=== PATIENT | male | born 1975 | race African-American/Black ===

== ENCOUNTER 2017-02-13 22:31 | Emergency (ER) | payer OTHER, MEDICAID ==
[~2017-02-13] VITALS: Ht 185.4 cm; Wt 99.8 kg
[2017-02-13 22:35] VITALS: BP_SYST 126
[2017-02-13] MEDS ORDERED: BACITRACIN 1 GM OINT TP ONE (23:33)
[2017-02-13 23:40] VITALS: BP_SYST 128
== END 2017-02-13 23:40 | disposition home or self-care (01) ==
LOC: SED 22:31
DX: I83.12 Varicose veins of left lower extremity with inflammation (principal); J45.909 Unspecified asthma, uncomplicated; Z88.8 Allergy status to other drugs, medicaments and biological substances; Z86.718 Personal history of other venous thrombosis and embolism
CPT/HCPCS: 99283

== ENCOUNTER 2019-11-22 22:39 | Emergency (ER) | payer OTHER, MEDICAID ==
[~2019-11-22] VITALS: Ht 185.4 cm; Wt 117.0 kg
[2019-11-22 22:45] VITALS: BP_SYST 132
[2019-11-23 01:05] LABS: BASOPHILS % (AUTO) 0.7 % (0.0-2.0); EOSINOPHILS # (AUTO) 0.2 K/uL (0.0-0.4); EOSINOPHILS % (AUTO) 4.6 % (0.0-4.0); HEMATOCRIT 37.2 % (36-54); LYMPHOCYTES # (AUTO) 1.7 K/uL (1.0-5.5); LYMPHOCYTES % (AUTO) 33.1 % (20.5-51.5); MEAN CORPUSCULAR HEMOGLOBIN 27 pg (27-31); MEAN CORPUSCULAR HGB CONC 32 % (32-36); MEAN CORPUSCULAR VOLUME 84 fL (79.0-98.0); MONOCYTES # (AUTO) 0.4 K/uL (0.0-1.0); MONOCYTES % (AUTO) 8.2 % (1.7-9.3); NEUTROPHILS # (AUTO) 2.8 K/uL (1.8-7.7); NEUTROPHILS % (AUTO) 53.4 % (40.0-70.0); PLATELET COUNT (AUTO) 259 K/uL (130-430); RED BLOOD CELL COUNT(AUTO) 4.44 MIL/uL (4.2-6.2); RED CELL DISTRIBUTION WIDTH 14.6 % (9.0-15.0); WHITE BLOOD COUNT (AUTO) 5.2 K/uL (4.8-10.8)
[2019-11-23 01:14] LABS: CALCIUM 8.4 mg/dL (8.4-11.0); CREATININE 1.29 mg/dL (0.55-1.30); POTASSIUM 3.9 mmol/L (3.5-5.1)
[2019-11-23 01:19] LABS: ALBUMIN 3.6 g/dL (3.4-4.8); TOTAL BILIRUBIN 0.4 mg/dL (0.0-1.0)
[2019-11-23 01:52] LABS: BILIRUBIN,URINE NEGATIVE (NEGATIVE); BLOOD, URINE NEGATIVE (NEGATIVE); CLARITY/URINE CLEAR (CLEAR); COLOR,URINE YELLOW (YELLOW); GLUCOSE,URINE NEGATIVE (NEGATIVE); KETONES,URINE NEGATIVE (NEGATIVE); LEUKOCYTE ESTERASE ,URINE TRACE (NEGATIVE); NITRITE, URINE NEGATIVE (NEGATIVE); PROTEIN URINE NEGATIVE (NEGATIVE); UROBILINOGEN,URINE 0.2 (0.2-1.0)
[2019-11-23 02:11] VITALS: BP_SYST 128
[2019-11-25 01:06] LABS: CHLAMYDIA TRACHOMATIS NAA Negative (Negative); NEISSERIA GONORRHOEAE NAA Negative (Negative)
== END 2019-11-23 02:11 | disposition home or self-care (01) ==
LOC: SED 22:39
DX: R10.31 Right lower quadrant pain (principal); J45.909 Unspecified asthma, uncomplicated; F15.90 Other stimulant use, unspecified, uncomplicated; Z72.89 Other problems related to lifestyle; Z88.6 Allergy status to analgesic agent; Z86.718 Personal history of other venous thrombosis and embolism
CPT/HCPCS: 36415; 80053; 81003; 83690-TC; 85025; 87491; 87591; 99284

== ENCOUNTER 2020-06-16 16:58 | Emergency (ER) | payer OTHER, MEDICAID ==
[~2020-06-16] VITALS: Ht 185.4 cm; Wt 113.4 kg
[2020-06-16 17:14] VITALS: BP_SYST 140
--- NOTE | 2020-06-16 17:14 | NUR ---
Received patient to ER w/ c/o dysuria ongoing for several weeks for which patient feels that he may have an STD. Introduced self to patient, positioned for comfort bed to low position, sr up, continue to monitor.
--- NOTE | 2020-06-16 17:14 | NUR ---
Patient to ER bed 6 to gown for evaluation. Side rails up. Report given to
--- NOTE | 2020-06-16 17:55 | NUR ---
ALINE Peacock at bedside examining patient.
[2020-06-16 18:03] LABS: BILIRUBIN,URINE NEGATIVE (NEGATIVE); COLOR,URINE YELLOW (YELLOW); GLUCOSE,URINE NEGATIVE (NEGATIVE); KETONES,URINE NEGATIVE (NEGATIVE); NITRITE, URINE NEGATIVE (NEGATIVE); PROTEIN URINE NEGATIVE (NEGATIVE); UROBILINOGEN,URINE 0.2 (0.2-1.0)
[2020-06-16] MEDS: cefTRIAXone 250 MG VIAL IM ONE (18:04)
[2020-06-16] MEDS: AZITHROMYCIN 250 MG TABLET PO ONE (18:05)
[2020-06-16] MEDS: LIDOCAINE 1% 10 MG/ML, 20 ML MDV INJ ONE (18:06)
--- NOTE | 2020-06-16 18:08 | NUR ---
patient medicated as ordered. will observe for any adverse reaction. bed to low positon sr up, continue to monitor.
[2020-06-16 18:13] LABS: BLOOD, URINE TRACE (NEGATIVE); CLARITY/URINE HAZY (CLEAR); LEUKOCYTE ESTERASE ,URINE 3+ (NEGATIVE)
[2020-06-16 18:14] LABS: BACTERIA,URINE FEW /HPF (None Seen); MUCUS,URINE None Seen /LPF (None Seen); RBC,URINE NONE SEEN /HPF (0-3); WBC,URINE 80-100 /HPF (0-3)
--- NOTE | 2020-06-16 18:24 | NUR ---
patient w/ no adverse reaction to medication. patient ok to d/c home given aci and rx verbalized understanding of f/u care and taking of rx medications.
[2020-06-16 18:25] VITALS: BP_SYST 135
--- NOTE | 2020-06-16 18:25 | NUR ---
Patient given written and verbal discharge instructions and verbalizes understanding. ER MD discussed with patient the results and treatment provided. Patient in stable condition. ID arm band removed. IV catheter removed intact and dressing applied, no active bleeding. Rx of given. Patient educated on pain management and to follow up with PMD. Pain Scale . Opportunity for questions provided and answered. Medication side effect fact sheet provided.
== END 2020-06-16 18:25 | disposition home or self-care (01) ==
LOC: SED 16:58
DX: N39.0 Urinary tract infection, site not specified (principal); J45.909 Unspecified asthma, uncomplicated; F17.200 Nicotine dependence, unspecified, uncomplicated; F15.90 Other stimulant use, unspecified, uncomplicated; Z88.6 Allergy status to analgesic agent; Z86.718 Personal history of other venous thrombosis and embolism
CPT/HCPCS: 81000-TC; 87086; 87491; 87591; 96372; 99283

== ENCOUNTER 2020-07-10 20:52 | Emergency (ER) | payer OTHER, MEDICAID ==
[~2020-07-10] VITALS: Ht 182.9 cm; Wt 113.4 kg
[2020-07-10 21:00] VITALS: BP_SYST 150
== END 2020-07-10 23:10 | disposition left against medical advice (07) ==
LOC: SED 20:52
DX: M54.5 Low back pain (principal); Z53.21 Procedure and treatment not carried out due to patient leaving prior to being seen by health care provider

== ENCOUNTER 2020-07-17 20:25 | Emergency (ER) | payer OTHER, MEDICAID ==
[~2020-07-17] VITALS: Ht 185.4 cm; Wt 113.4 kg
--- NOTE | 2020-07-17 21:00 | NUR ---
DR. ARMSTRONG IN TRIAGE TO EVALUATE PT STATUS
[2020-07-17 21:03] VITALS: BP_SYST 121
--- NOTE | 2020-07-17 21:03 | NUR ---
PT TO REMAIN IN ER LOBBY, NO ER BED AVAILABLE
--- NOTE | 2020-07-17 21:05 | NUR ---
PT AAO AND AMBULATORY REPORTING GREEN DRAINAGE FROM LEFT NOSE AND HEADACHE PAIN. PT C/O PAIN IN BILATERAL LOWER EXTREMITIES AND THAT IT IS DIFFICULT TO WALK BECAUSE OF SWELLING. PT REPORTS PAIN 10/10.
[2020-07-17 22:22] LABS: BASOPHILS % (AUTO) 0.3 % (0.0-2.0); EOSINOPHILS # (AUTO) 0.3 K/uL (0.0-0.4); EOSINOPHILS % (AUTO) 4.5 % (0.0-4.0); HEMATOCRIT 37.1 % (36-54); HEMOGLOBIN 12.3 g/dL (14.0-18.0); LYMPHOCYTES # (AUTO) 1.5 K/uL (1.0-5.5); LYMPHOCYTES % (AUTO) 26.2 % (20.5-51.5); MEAN CORPUSCULAR HEMOGLOBIN 27 pg (27-31); MEAN CORPUSCULAR HGB CONC 33 % (32-36); MEAN CORPUSCULAR VOLUME 81 fL (79.0-98.0); MONOCYTES # (AUTO) 0.6 K/uL (0.0-1.0); MONOCYTES % (AUTO) 10.7 % (1.7-9.3); NEUTROPHILS # (AUTO) 3.4 K/uL (1.8-7.7); NEUTROPHILS % (AUTO) 58.3 % (40.0-70.0); PLATELET COUNT (AUTO) 312 K/uL (130-430); RED BLOOD CELL COUNT(AUTO) 4.55 MIL/uL (4.2-6.2); RED CELL DISTRIBUTION WIDTH 13.1 % (9.0-15.0); WHITE BLOOD COUNT (AUTO) 5.8 K/uL (4.8-10.8)
[2020-07-17 22:25] LABS: ANION GAP 9 (5-15); CALCIUM 8.8 mg/dL (8.4-11.0); CHLORIDE 102 mmol/L (98-107); CREATININE 1.05 mg/dL (0.55-1.30); GLUCOSE 123 mg/dL (70-99); POTASSIUM 4.2 mmol/L (3.5-5.1); SODIUM SERUM 137 mmol/L (136-145); UREA NITROGEN, BLOOD 20 mg/dL (8-21)
[2020-07-17 22:33] LABS: ALANINE AMINOTRANSFERASE 21 U/L (12-78); ALBUMIN 3.6 g/dL (3.4-4.8); ASPARTATE AMINOTRANSFERASE 18 U/L (10-37); TOTAL BILIRUBIN 0.5 mg/dL (0.0-1.0)
[2020-07-17 22:34] LABS: GFR AFRICAN AMERICAN 99 mL/min (>90)
[2020-07-17] MEDS ORDERED: KETOROLAC TROMETHAMINE 30 MG VIAL ONE (23:12)
[2020-07-17] MEDS: KETOROLAC TROMETHAMINE 30 MG VIAL IM ONE (23:24)
--- NOTE | 2020-07-18 | NUR ---
PT SLEEPING IN WHEELCHAIR AND IS AWAITING DISCHARGE.
--- NOTE | 2020-07-18 01:30 | NUR ---
PT AWAITING VP BUSINESS DEVELOPMENT TO EVALUATE HIS LIVING SITUATION. PT IS CURRENTLY SLEEPING IN THE ER LOBBY.
--- NOTE | 2020-07-18 02:38 | NUR ---
PT. RESTING IN ED WHEEL CHAIR A&Ox3 PT AWAITING BUSINESS INTELLIGENCE ETL DEVELOPER
[2020-07-18 03:00] VITALS: BP_SYST 163
--- NOTE | 2020-07-18 03:00 | NUR ---
Patient given written and verbal discharge instructions and verbalizes understanding. ER MD ARMSTRONG discussed with patient the results and treatment provided. Patient in stable condition. ID arm band removed.Patient educated on pain management and to follow up with PMD. Pain Scale 0/10. Opportunity for questions provided and answered.
== END 2020-07-18 02:38 | disposition home or self-care (01) ==
LOC: SED 20:25
DX: M79.662 Pain in left lower leg (principal); M79.661 Pain in right lower leg; R51.9 Headache, unspecified; J45.909 Unspecified asthma, uncomplicated
CPT/HCPCS: 36415; 70450; 72170; 76376; 80053; 82550; 84484; 85025; 96372; 99285; J1885

== ENCOUNTER 2020-09-11 23:48 | Observation (INO) | payer OTHER, MEDICAID, SELFPAY ==
[~2020-09-11] VITALS: Ht 185.4 cm; Wt 104.3 kg
[2020-09-11 23:50] VITALS: BP_SYST 143
[2020-09-12] MEDS: NALOXONE HCL 0.4 MG/ML AMP (NARCAN) IVP ONE (00:43)
[2020-09-12] MEDS: ASPIRIN 81 MG TAB.CHEW PO ONE (00:43)
[2020-09-12 00:47] LABS: BARBITURATE, URINE NEGATIVE (NEG <=200); BENZODIAZEPINE, URINE NEGATIVE (NEG <=150); CANNABINOID, URINE POSITIVE (NEG <=50); COCAINE, URINE NEGATIVE (NEG <=150); METHAMPHETAMINES SCREEN,URINE POSITIVE (NEG <=500); OPIATE, URINE NEGATIVE (NEG <=100); PHENCYCLIDINE SCREEN,URINE POSITIVE (NEG <=25); UR TRICYCLIC ANTIDEPRESSANTS NEGATIVE (NEG <=300); URINE AMPHETAMINE POSITIVE (NEG <=500); URINE METHADONE NEGATIVE (NEG <=200); URINE OXYCODONE SCREEN NEGATIVE (NEG <=100); URINE PROPOXYPHENE SCREEN NEGATIVE (NEG <=300)
[2020-09-12 01:44] LABS: BASOPHILS % (AUTO) 0.8 % (0.0-2.0); EOSINOPHILS # (AUTO) 0.2 K/uL (0.0-0.4); EOSINOPHILS % (AUTO) 3.4 % (0.0-4.0); HEMOGLOBIN 12.5 g/dL (14.0-18.0); LYMPHOCYTES # (AUTO) 1.5 K/uL (1.0-5.5); LYMPHOCYTES % (AUTO) 27.4 % (20.5-51.5); MEAN CORPUSCULAR HEMOGLOBIN 27 pg (27-31); MEAN CORPUSCULAR HGB CONC 32 % (32-36); MEAN CORPUSCULAR VOLUME 83 fL (79.0-98.0); MONOCYTES # (AUTO) 0.5 K/uL (0.0-1.0); MONOCYTES % (AUTO) 8.7 % (1.7-9.3); NEUTROPHILS # (AUTO) 3.3 K/uL (1.8-7.7); NEUTROPHILS % (AUTO) 59.7 % (40.0-70.0); PLATELET COUNT (AUTO) 271 K/uL (130-430); RED BLOOD CELL COUNT(AUTO) 4.73 MIL/uL (4.2-6.2); RED CELL DISTRIBUTION WIDTH 13.8 % (9.0-15.0); WHITE BLOOD COUNT (AUTO) 5.5 K/uL (4.8-10.8)
[2020-09-12 01:57] LABS: ANION GAP 7 (5-15); CALCIUM 8.4 mg/dL (8.4-11.0); CHLORIDE 101 mmol/L (98-107); CREATININE 1.01 mg/dL (0.55-1.30); GFR AFRICAN AMERICAN 104 mL/min (>90); GLUCOSE 99 mg/dL (70-99); POTASSIUM 3.8 mmol/L (3.5-5.1); SODIUM SERUM 137 mmol/L (136-145); UREA NITROGEN, BLOOD 17 mg/dL (8-21)
[2020-09-12 02:00] LABS: INR 0.9 (0.80-1.20); PROTHROMBIN TIME 9.2 SECS (9.5-12.5)
[2020-09-12 02:03] LABS: ALANINE AMINOTRANSFERASE 24 U/L (12-78); ALBUMIN 3.7 g/dL (3.4-4.8); ASPARTATE AMINOTRANSFERASE 17 U/L (10-37); TOTAL BILIRUBIN 0.2 mg/dL (0.0-1.0)
[2020-09-12 02:06] LABS: ALCOHOL, BLOOD < 3 mg/dL (<10)
[2020-09-12 10:42] VITALS: BP_SYST 122
[2020-09-12 10:50] VITALS: BP_SYST 122
[2020-09-12 12:40] VITALS: BP_SYST 95
[2020-09-12 16:45] VITALS: BP_SYST 136
[2020-09-12 20:00] VITALS: BP_SYST 109
[2020-09-13] VITALS: BP_SYST 120
[2020-09-13 08:00] VITALS: BP_SYST 108
[2020-09-13 11:24] VITALS: BP_SYST 117
[2020-09-13 12:29] VITALS: BP_SYST 117
== END 2020-09-13 15:00 | disposition home or self-care (01) ==
LOC: SED 23:48 → STU 09-12 07:18
PROVIDERS: ADMIT Internal Medicine Hospice and Palliative Medicine; ATTEND Internal Medicine Hospice and Palliative Medicine
DX: R07.89 Other chest pain (principal); Z20.822 Contact with and (suspected) exposure to COVID-19; J45.909 Unspecified asthma, uncomplicated; R41.82 Altered mental status, unspecified; F15.10 Other stimulant abuse, uncomplicated; F17.210 Nicotine dependence, cigarettes, uncomplicated; Z86.79 Personal history of other diseases of the circulatory system; Z59.0 Homelessness; Z86.711 Personal history of pulmonary embolism; Z79.899 Other long term (current) drug therapy; Z86.73 Personal history of transient ischemic attack (TIA), and cerebral infarction without residual deficits; Z86.59 Personal history of other mental and behavioral disorders
CPT/HCPCS: 36415 ×2; 70450; 71045; 76376; 80053; 80307; 82550; 83880; 84484 ×2; 85025; 85379; 85610; 85730; 87426; 93005; 93306; 96374; 99285; G0378 ×2; G0482; J2310

== ENCOUNTER 2020-12-30 20:18 | Emergency (ER) | payer OTHER, MEDICAID ==
[~2020-12-30] VITALS: Ht 185.4 cm; Wt 117.9 kg
[2020-12-30 20:18] VITALS: BP_SYST 157
[2020-12-30] MEDS ORDERED: NACL 0.9% 1,000 ML IV ONE (22:00)
[2020-12-30 22:24] LABS: BASOPHILS % (AUTO) 0.9 % (0.0-2.0); EOSINOPHILS # (AUTO) 0.2 K/uL (0.0-0.4); EOSINOPHILS % (AUTO) 3.9 % (0.0-4.0); HEMATOCRIT 37.2 % (36-54); HEMOGLOBIN 12.3 g/dL (14.0-18.0); LYMPHOCYTES # (AUTO) 1.7 K/uL (1.0-5.5); LYMPHOCYTES % (AUTO) 30.9 % (20.5-51.5); MEAN CORPUSCULAR HEMOGLOBIN 27 pg (27-31); MEAN CORPUSCULAR HGB CONC 33 % (32-36); MEAN CORPUSCULAR VOLUME 82 fL (79.0-98.0); MONOCYTES # (AUTO) 0.4 K/uL (0.0-1.0); MONOCYTES % (AUTO) 6.7 % (1.7-9.3); NEUTROPHILS # (AUTO) 3.2 K/uL (1.8-7.7); NEUTROPHILS % (AUTO) 57.6 % (40.0-70.0); PLATELET COUNT (AUTO) 254 K/uL (130-430); RED BLOOD CELL COUNT(AUTO) 4.53 MIL/uL (4.2-6.2); RED CELL DISTRIBUTION WIDTH 14.7 % (9.0-15.0); WHITE BLOOD COUNT (AUTO) 5.5 K/uL (4.8-10.8)
[2020-12-30 22:29] LABS: CALCIUM 8.6 mg/dL (8.4-11.0); CREATININE 1.03 mg/dL (0.55-1.30); POTASSIUM 3.7 mmol/L (3.5-5.1)
[2020-12-30 22:31] LABS: INR 0.9 (0.80-1.20); PROTHROMBIN TIME 9.2 SECS (9.5-12.5)
[2020-12-30 22:34] LABS: ALBUMIN 3.5 g/dL (3.4-4.8); TOTAL BILIRUBIN 0.4 mg/dL (0.0-1.0)
[2020-12-31 03:10] VITALS: BP_SYST 146
== END 2020-12-31 03:10 | disposition home or self-care (01) ==
LOC: SED 20:18
DX: R10.32 Left lower quadrant pain (principal); J45.909 Unspecified asthma, uncomplicated
CPT/HCPCS: 36415; 74176; 80053; 82150; 82962; 83690; 85025; 85610; 96360; 99284; J7030; 76376

== ENCOUNTER 2021-02-25 15:39 | Emergency (ER) | payer OTHER, MEDICAID ==
[~2021-02-25] VITALS: Ht 185.4 cm; Wt 99.8 kg
[2021-02-25 15:43] VITALS: BP_SYST 139
--- NOTE | 2021-02-25 15:45 | NUR ---
pt arrives via BLS for increasing favio foot pain 03/06. Pt has been walking frequently and walking form motel to motel. Pt denies any trauma
--- NOTE | 2021-02-25 15:48 | NUR ---
ER at bedside examining patient.
[2021-02-25] MEDS ORDERED: KETOROLAC TROMETHAMINE 60 MG/2 ML VIAL IM ONE (16:00)
--- NOTE | 2021-02-25 16:00 | NUR ---
pt bib via ems for increasing Radhames foot pain. Per pt he has been ambulating frequently from motel to motel. pt has been having difficulty staying awake. Denies any drug use.
[2021-02-25 16:31] LABS: BASOPHILS % (AUTO) 0.5 % (0.0-2.0); EOSINOPHILS # (AUTO) 0.2 K/uL (0.0-0.4); EOSINOPHILS % (AUTO) 2.7 % (0.0-4.0); HEMATOCRIT 36.4 % (36-54); HEMOGLOBIN 11.9 g/dL (14.0-18.0); LYMPHOCYTES # (AUTO) 1.3 K/uL (1.0-5.5); MEAN CORPUSCULAR HEMOGLOBIN 27 pg (27-31); MEAN CORPUSCULAR HGB CONC 33 % (32-36); MEAN CORPUSCULAR VOLUME 83 fL (79.0-98.0); MONOCYTES # (AUTO) 0.6 K/uL (0.0-1.0); MONOCYTES % (AUTO) 10.2 % (1.7-9.3); NEUTROPHILS # (AUTO) 3.7 K/uL (1.8-7.7); NEUTROPHILS % (AUTO) 63.6 % (40.0-70.0); PLATELET COUNT (AUTO) 246 K/uL (130-430); RED BLOOD CELL COUNT(AUTO) 4.37 MIL/uL (4.2-6.2); RED CELL DISTRIBUTION WIDTH 14.4 % (9.0-15.0); WHITE BLOOD COUNT (AUTO) 5.8 K/uL (4.8-10.8)
[2021-02-25 16:48] LABS: ANION GAP 7 (5-15); CALCIUM 8.6 mg/dL (8.4-11.0); CHLORIDE 104 mmol/L (98-107); GLUCOSE 91 mg/dL (70-99); POTASSIUM 3.5 mmol/L (3.5-5.1); SODIUM SERUM 139 mmol/L (136-145); UREA NITROGEN, BLOOD 16 mg/dL (8-21)
[2021-02-25 16:49] LABS: GFR AFRICAN AMERICAN 85 mL/min (>90)
[2021-02-25 17:03] LABS: ALANINE AMINOTRANSFERASE 24 U/L (12-78); ALBUMIN 3.7 g/dL (3.4-4.8); ASPARTATE AMINOTRANSFERASE 16 U/L (10-37); TOTAL BILIRUBIN 0.8 mg/dL (0.0-1.0)
[2021-02-25 17:05] LABS: ACETAMINOPHEN < 1 ug/mL (1-30); ALCOHOL, BLOOD < 3 mg/dL (<10)
[2021-02-25 17:09] LABS: INR 0.9 (0.80-1.20); PROTHROMBIN TIME 9.9 SECS (9.5-12.5)
[2021-02-25 17:12] LABS: C-REACTIVE PROTEIN QUANT < 0.2 mg/dL (0-0.5)
[2021-02-25 17:17] LABS: ACETONE, SERUM NEGATIVE (NEGATIVE)
[2021-02-25 17:54] LABS: BILIRUBIN,URINE NEGATIVE (NEGATIVE); BLOOD, URINE 2+ (NEGATIVE); CLARITY/URINE CLEAR (CLEAR); COLOR,URINE YELLOW (YELLOW); GLUCOSE,URINE NEGATIVE (NEGATIVE); KETONES,URINE NEGATIVE (NEGATIVE); LEUKOCYTE ESTERASE ,URINE NEGATIVE (NEGATIVE); NITRITE, URINE NEGATIVE (NEGATIVE); PROTEIN URINE NEGATIVE (NEGATIVE); UROBILINOGEN,URINE 0.2 (0.2-1.0)
--- NOTE | 2021-02-25 18:00 | NUR ---
ua collected via straight cath
[2021-02-25 18:12] LABS: BACTERIA,URINE FEW /HPF (None Seen); RBC,URINE 0-3 /HPF (0-3); WBC,URINE NONE SEEN /HPF (0-3)
[2021-02-25 18:14] LABS: CANNABINOID, URINE POSITIVE (NEG <=50); METHAMPHETAMINES SCREEN,URINE POSITIVE (NEG <=500); URINE AMPHETAMINE POSITIVE (NEG <=500)
[2021-02-25 18:15] LABS: BARBITURATE, URINE NEGATIVE (NEG <=200); BENZODIAZEPINE, URINE NEGATIVE (NEG <=150); COCAINE, URINE NEGATIVE (NEG <=150); OPIATE, URINE NEGATIVE (NEG <=100); PHENCYCLIDINE SCREEN,URINE POSITIVE (NEG <=25); UR TRICYCLIC ANTIDEPRESSANTS NEGATIVE (NEG <=300); URINE METHADONE NEGATIVE (NEG <=200); URINE OXYCODONE SCREEN NEGATIVE (NEG <=100); URINE PROPOXYPHENE SCREEN NEGATIVE (NEG <=300)
--- NOTE | 2021-02-25 19:12 | NUR ---
care endorsed to Nani GREER
--- NOTE | 2021-02-25 20:26 | NUR ---
Patient resting quietly. No acute distress noted. Vital signs within normal range.
--- NOTE | 2021-02-26 00:06 | NUR ---
Patient resting quietly. No acute distress noted. Vital signs within normal range.
[2021-02-26] MEDS ORDERED: ACETAMINOPHEN 500 MG TABLET ONE (01:37)
--- NOTE | 2021-02-26 01:37 | NUR ---
Patient states "had lower abdominal pain. " , Dr. Nixon notified.
[2021-02-26] MEDS ORDERED: ACETAMINOPHEN 500 MG TABLET PO ONE (01:45)
--- NOTE | 2021-02-26 02:28 | NUR ---
Returned from radiology, back to [facility].
[2021-02-26] MEDS ORDERED: cephALEXin 500 MG CAPSULE PO ONE (03:45)
--- NOTE | 2021-02-26 04:06 | NUR ---
Patient resting quietly. No acute distress noted. Vital signs within normal range.
[2021-02-26 05:08] VITALS: BP_SYST 130
--- NOTE | 2021-02-26 05:08 | NUR ---
Patient given written and verbal discharge instructions and verbalizes understanding. ER MD discussed with patient the results and treatment provided. Patient in stable condition. ID arm band removed. NO Rx given. Patient educated on pain management and to follow up with PMD. Pain Scale 0/10. Opportunity for questions provided and answered. Medication side effect fact sheet provided.
== END 2021-02-26 05:08 | disposition home or self-care (01) ==
LOC: SED 15:39
DX: M72.2 Plantar fascial fibromatosis (principal); N39.0 Urinary tract infection, site not specified; F19.10 Other psychoactive substance abuse, uncomplicated; J45.909 Unspecified asthma, uncomplicated; R51.9 Headache, unspecified; Z79.899 Other long term (current) drug therapy
CPT/HCPCS: 36415; 70450; 74176; 76376 ×2; 80053; 80307; 81000; 82009; 82140; 82550; 83605; 84484; 85025; 85610; 85730; 86140; 96372; 99285; G0480; J1885; G0481; G0482

== ENCOUNTER 2021-07-09 16:53 | Emergency (ER) | payer OTHER, MEDICAID ==
[~2021-07-09] VITALS: Ht 182.9 cm; Wt 113.4 kg
[2021-07-09 17:04] VITALS: BP_SYST 138
--- NOTE | 2021-07-09 17:04 | NUR ---
Patient to [facility] for evaluation. Side rails up. . Report given to PERCY Hopkins
--- NOTE | 2021-07-09 17:12 | NUR ---
Patient laying on gurney in hallway sleeping. Awaiting MD evaluation.
[2021-07-09] MEDS ORDERED: KETOROLAC TROMETHAMINE 60 MG/2 ML VIAL IM ONE (17:15)
--- NOTE | 2021-07-09 17:25 | NUR ---
Patient given urine cup and informed urine sample is needed. Patient very sleepy; hard to arouse and minimally communicative upon face to face assessment.
[2021-07-09 18:04] LABS: BASOPHILS % (AUTO) 0.2 % (0.0-2.0); EOSINOPHILS # (AUTO) 0.1 K/uL (0.0-0.4); HEMATOCRIT 36.7 % (36-54); HEMOGLOBIN 11.4 g/dL (14.0-18.0); LYMPHOCYTES # (AUTO) 1.1 K/uL (1.0-5.5); LYMPHOCYTES % (AUTO) 16.2 % (20.5-51.5); MEAN CORPUSCULAR HEMOGLOBIN 26 pg (27-31); MEAN CORPUSCULAR HGB CONC 31 % (32-36); MEAN CORPUSCULAR VOLUME 83 fL (79.0-98.0); MONOCYTES # (AUTO) 0.6 K/uL (0.0-1.0); MONOCYTES % (AUTO) 9.7 % (1.7-9.3); NEUTROPHILS # (AUTO) 4.7 K/uL (1.8-7.7); NEUTROPHILS % (AUTO) 71.9 % (40.0-70.0); PLATELET COUNT (AUTO) 237 K/uL (130-430); RED BLOOD CELL COUNT(AUTO) 4.41 MIL/uL (4.2-6.2); RED CELL DISTRIBUTION WIDTH 13.7 % (9.0-15.0); WHITE BLOOD COUNT (AUTO) 6.6 K/uL (4.8-10.8)
--- NOTE | 2021-07-09 18:18 | NUR ---
Patient swabbed for covid. Sample brought to the lab.
--- NOTE | 2021-07-09 18:25 | NUR ---
Patient transported to CT scan via [facility]
[2021-07-09 18:54] LABS: CALCIUM 8.8 mg/dL (8.4-11.0); POTASSIUM 3.8 mmol/L (3.5-5.1)
[2021-07-09 18:55] LABS: CREATININE 0.94 mg/dL (0.55-1.30); TOTAL BILIRUBIN 0.2 mg/dL (0.0-1.0)
[2021-07-09 18:56] LABS: ALBUMIN 3.3 g/dL (3.4-4.8)
--- NOTE | 2021-07-09 19:07 | NUR ---
Report given to Marleny GREER to assume care of patient
--- NOTE | 2021-07-09 20:00 | NUR ---
PT RESTING AT THIS TIME. NAD. RESPIRATIONS EVEN AND UNLABORED. DENIES ANY PAIN AT THIS TIME. EASILY AROUSABLE.
--- NOTE | 2021-07-09 21:30 | NUR ---
Patient resting quietly. No acute distress noted. Vital signs within normal range.
--- NOTE | 2021-07-09 22:45 | NUR ---
AWAITING FOR RESPONSE FROM DENISE CHACON FOR PLACEMENT. VSS. DENIES ANY PAIN. NAD. RESPIRATIONS EVEN AND UNLABORED.
--- NOTE | 2021-07-09 23:00 | NUR ---
# 20 gauge angiocath placed to LEFT WRIST. Use of asceptic technique. Opsite placed over site. Blood return noted. . Flushed with 10 cc of normal saline. No evidence of infiltration noted. Patient tolerated well.
--- NOTE | 2021-07-10 00:57 | NUR ---
Patient to be transferred to [facility]. Is being transferred due to higher level of care. Receiving facility has accepting physician and available space. ER physician has signed transfer form. Patient or responsible constitution party has agreed to transfer and signed form. Patient belongings inventoried and will be sent with patient. Copy of nursing notes, lab reports, EKG, Physicians Orders and X-rays to be sent with patient. Report called to NICOLE at receiving facility. Receiving physician is SAJI. [facility] has been called for transfer. ETA is [id number].
[2021-07-10 00:59] VITALS: BP_SYST 138
== END 2021-07-10 00:57 ==
LOC: SED 16:53
DX: M54.50 Low back pain, unspecified (principal); J45.909 Unspecified asthma, uncomplicated; Z20.822 Contact with and (suspected) exposure to COVID-19
CPT/HCPCS: 36415; 72131; 76376; 80053; 85025; 87426; 96372; 99285; J1885